=== PATIENT | female | born 1940 | race Caucasian/White ===

== ENCOUNTER → 2023-10-11 13:46 | Outpatient (REF) | payer OTHER, SELFPAY | LOC: HWWDC 13:46 | PROVIDERS: ATTENDING PHYSICIAN Family Medicine | DX: Z12.31 Encounter for screening mammogram for malignant neoplasm of breast (principal) | CPT/HCPCS: 77063; 77067 ==

== ENCOUNTER → 2024-02-09 14:39 | Outpatient (REF) | payer OTHER, SELFPAY | LOC: HWRAD 14:39 | PROVIDERS: ATTENDING PHYSICIAN Registered Nurse | DX: J44.1 Chronic obstructive pulmonary disease with (acute) exacerbation (principal) | CPT/HCPCS: 71046 ==

== ENCOUNTER → 2024-10-19 08:18 | Outpatient (REF) | payer OTHER, SELFPAY | LOC: HWWDC 08:18 | PROVIDERS: ATTENDING PHYSICIAN Family Medicine | DX: Z12.31 Encounter for screening mammogram for malignant neoplasm of breast (principal); M81.0 Age-related osteoporosis without current pathological fracture | CPT/HCPCS: 77063; 77067; 77080 ==